=== PATIENT | female | born 1970 | race Caucasian/White ===

== ENCOUNTER 2021-05-11 12:11 | Emergency (ER) | payer SELFPAY ==
[~2021-05-11] VITALS: Ht 170.2 cm; Wt 72.0 kg
[2021-05-11 13:57] LABS: HEMATOCRIT 46.3 % (37.0-47.0); HEMOGLOBIN 14.4 g/dl (12.0-16.0); MEAN CORPUSCULAR HGB 28.3 pG CALC (26.0-32.0); MEAN CORPUSCULAR HGB CONC 31.1 g/dL CAL (32.0-36.0); NEUT# 2.65 thou/uL (2.00-7.15); RED BLOOD COUNT 5.09 mill/uL (4.20-5.60)
[2021-05-11 13:58] LABS: URINE BILIRUBIN - DIPSTICK NEGATIVE (NEGATIVE); URINE BLOOD DIPSTICK NEGATIVE (NEGATIVE); URINE COLOR YELLOW; URINE GLUCOSE - DIPSTICK NEGATIVE (NEGATIVE); URINE KETONE NEGATIVE (NEGATIVE); URINE LEUK ESTERASE NEGATIVE (NEGATIVE); URINE PROTEIN - DIPSTICK NEGATIVE (NEG-TRACE); URINE UROBILINOGEN - DIPSTICK 0.2 E.U./dL (0.2)
[2021-05-11 13:59] LABS: URINE NITRITE - DIPSTICK NEGATIVE (Negative)
[2021-05-11 14:12] LABS: ALBUMIN 4.5 g/dL (3.2-5.0); ALKALINE PHOSPHATASE 86 u/l (38-126); ANION GAP 15 (6-22 (CALC)); BILIRUBIN, TOTAL 0.3 mg/dL (0.0-1.4); BUN 12 mg/dL (7-17); BUN/CREATININE RATIO 13 (12-20 (CALC)); CARBON DIOXIDE 29 mmol/l (22-30); CHLORIDE 100 mmol/l (95-108); CREATININE 0.9 mg/dL (0.5-1.0); GFR > 60 ML/MIN (>=60 (CALC)); GFR FOR AFR.AMER. > 60 ML/MIN (>=60 (CALC)); LIPASE 145 u/l (23-300); POTASSIUM 3.6 mmol/l (3.5-5.1); SGOT/AST 29 u/l (14-36); SODIUM 140 mmol/l (137-146); TOTAL PROTEIN 8.4 g/dL (6.3-8.2)
[2021-05-11 14:14] LABS: IMMATURE GRANULOCYTES 0.2 % (0.0-5.0)
[2021-05-11] MEDS ORDERED: DICYCLOMINE10 MG PO (18:11)
[2021-05-11] MEDS ORDERED: PENICILLN VK500 MG PO (18:11)
[2021-05-11] MEDS ORDERED: TORADOL PO (18:11)
[2021-05-11] MEDS ORDERED: FLEXERIL5 M1 PO (18:11)
[2021-05-11 18:37] VITALS: BP 175/104
== END 2021-05-11 18:51 | disposition home or self-care (01) | DRG 391 ==
LOC: ED 12:11
PROVIDERS: Emergency Medicine
DX: K57.30 Diverticulosis of large intestine without perforation or abscess without bleeding (principal); U07.1 COVID-19; F15.10 Other stimulant abuse, uncomplicated
CPT/HCPCS: Q9967